=== PATIENT | female | born 1995 | race Caucasian/White ===

== ENCOUNTER 2021-04-02 18:48 | Inpatient (IN) | payer OTHER ==
[2021-04-02 19:53] LABS: HEMOGLOBIN 12.2 gm/dl (12.3-15.3); RED BLOOD COUNT 4.59 M/UL (4.00-5.10); WHITE BLOOD COUNT 8.9 K/UL (4.5-11.0)
[2021-04-02 20:15] LABS: BUN/CREATININE RATIO 10 (0-10)
[2021-04-03] MEDS ORDERED: COLACE 100MG C100 MG PO (10:17)
[2021-04-03] MEDS ORDERED: HYDROCODON-ACE1 EAC4 PO (10:17)
[2021-04-03] MEDS ORDERED: IBUPROFEN600 MG PO (10:17)
[2021-04-03 15:33] LABS: HEMOGLOBIN 10.3 gm/dl (12.3-15.3)
== END 2021-04-03 18:04 | disposition home or self-care (01) | DRG 807 ==
LOC: GENOP 18:48 → OB 20:23
PROVIDERS: Obstetrics & Gynecology; ADMIT Obstetrics & Gynecology
PROC: 3E0DXGC Introduction of Other Therapeutic Substance into Mouth and Pharynx, External Approach (ICD-10-PCS; 2021-04-02)
PROC: 10D17Z9 Manual Extraction of Products of Conception, Retained, Via Natural or Artificial Opening (ICD-10-PCS; principal; 2021-04-03 10:00)
DX: O02.1 Missed abortion (principal); Z37.1 Single stillbirth; Z3A.19 19 weeks gestation of pregnancy; Z20.822 Contact with and (suspected) exposure to COVID-19
CPT/HCPCS: 36415; 80053; 81001; 85014; 85018; 85025; 85384; 86900; 86901; J1170; J1885; J1956; J2001; J2210; J2250; J2405; J2590; J2704; J2795; J3010; J7030; J7120; U0002